=== PATIENT | male | born 1955 | race Caucasian/White ===

== ENCOUNTER 2018-01-25 20:41 | Emergency (ER) | payer BC, OTHER ==
[~2018-01-25] VITALS: Ht 181.6 cm; Wt 86.7 kg
[~2018-01-25 20:41] MED LIST: AMLO2.5T PO; BUPRTAB51 PO; CHOLTAB3 PO; DSY50 PO; MULT-506 PO; PANT1TAB4 PO
[2018-01-25 20:43] VITALS: TEMP 36.6; Ht 181.6 cm; Wt 86.7 kg
[2018-01-25] MEDS ORDERED: MULT-513 PO (21:13)
[2018-01-25] MEDS ORDERED: RIZA1TAB7 PO (21:13)
[2018-01-25] MEDS ORDERED: PANT40TA2 PO (21:13)
[2018-01-25] MEDS ORDERED: CHOL100027 PO (21:13)
[2018-01-25] MEDS ORDERED: TRAZ1TAB48 PO (21:13)
[2018-01-25] MEDS ORDERED: NRV/5 PO (21:13)
[2018-01-25] MEDS ORDERED: GLUCTAB7 PO (21:13)
[2018-01-25] MEDS ORDERED: WLLSR/200 PO (21:13)
[2018-01-25] MEDS ORDERED: ANT PO (21:13)
[2018-01-25] MEDS ORDERED: SODIUM CHLORIDE 0.9% 1000ML 1,000 ML IV STA (21:18)
[2018-01-25] MEDS ORDERED: ASPIRIN 81 MG CHEW PO STA (21:18)
[2018-01-25] MEDS ORDERED: FAMOTIDINE IV INJ 20 MG in DEXTROSE 5% 100ML 100 ML IV STA (21:18)
[2018-01-25] MEDS ORDERED: FAMOTIDINE 20MG/5ML IV PUSH IV ONE (21:32)
[2018-01-25 21:42] LABS: BASO % 0.2 %; BASO ABS # 0.02 K/uL (0-0.2); EOS % 0.5 %; EOS ABS # 0.06 K/uL (0-0.5); HEMATOCRIT 43.4 % (42-52); HEMOGLOBIN 15.2 g/dL (14.0-18.0); IG# 0.03 K/uL (0.00-0.02); LYMPH % 12.7 %; LYMPH ABS # 1.47 K/uL (1.2-3.4); MEAN CELL VOLUME 87.5 fL (80-100); MEAN CORPUSCULAR HEMOGLOBIN 30.6 pg (25-34); MEAN PLATELET VOLUME 11.2 fL (7.4-10.4); MONO % 6.5 %; MONO ABS # 0.75 K/uL (0.11-0.59); NEUT % 79.8 %; NEUT ABS # 9.24 K/uL (1.4-6.5); PLATELET COUNT 138 K/uL (130-400); RED CELL DISTRIBUTION WIDTH CV 13.2 % (11.5-14.5); RED CELL DISTRIBUTION WIDTH SD 42.4 fL (36.4-46.3); WHITE BLOOD COUNT 11.57 K/uL (4.8-10.8)
[2018-01-25 22:05] LABS: ALBUMIN 4.4 gm/dl (3.4-5.0); ALKALINE PHOSPHATASE 96 U/L (45-117); ALT/SGPT 28 U/L (12-78); AST/SGOT 29 U/L (15-37); BLOOD UREA NITROGEN 16 mg/dl (7-18); CALCIUM 8.7 mg/dl (8.5-10.1); CARBON DIOXIDE 27 mmol/L (21-32); CREATININE 1.01 mg/dl (0.60-1.40); GLUCOSE 105 mg/dl (70-99); LIPASE 228 U/L (73-393); POTASSIUM 3.7 mmol/L (3.5-5.1); SODIUM 138 mmol/L (136-145); TOTAL PROTEIN 7.8 gm/dl (6.4-8.2)
--- NOTE | 2018-01-25 22:50 | DIAGNOSTIC IMAGING REPORT ---
ABDOMEN 2VIEW W/PA CHEST RTN CLINICAL HISTORY: constipation, CP, nausea pain COMPARISON STUDY: 06/19/2015 FINDINGS: Lungs are clear. Diaphragms are smooth. Nonobstructive bowel pattern. Moderate fecal load within the ascending and transverse colon. Stable postoperative changes of the low lumbar spine consistent with laminectomy and fusion. IMPRESSION: 1. Negative chest. 2. Moderate increase in fecal material in ascending and transverse colon. 3. Otherwise negative study. The above report was generated using voice recognition software. It may contain grammatical, syntax or spelling errors. Electronically signed by: Camden Barrow M.D. 01/25/2018 10:48 PM Dictated Date/Time: 01/25/2018 10:48 PM
[2018-01-25] MEDS ORDERED: RANI150T3 PO (23:55)
[2018-01-26 00:01] VITALS: BP 132/67; PULSE 67; O2SAT 96
--- NOTE | 2018-01-26 00:34 | EMERGENCY ROOM VISIT NOTE ---
History First contact with patient: 20:54 Chief Complaint: GI ASSESSMENT Stated Complaint: CHEST PAIN Nursing Triage Summary: pt reports "I'm under a lot of stress recently, my spouse and i broke up over the weekend and i have a very stressful job, i'm a public relations account supervisor." pt c/o epigastric pain that began last night and continued with chest and back pain today. pt reports hx of bleeding ulcer approx 3 years ago that "almost required a transfusion." states "this sort of feels like the ulcer before but i got worried when my chest started to hurt. i think this is just anxiety, but still. " pt alert and oriented x4, breathing WNL, respirations regular and unlabored, lungs clear in all [place]. reports epigastric/chest pain. denies n/v/d/urinary symptoms. bowel sounds WNL, abd soft, nontender. pt ambulatory independently. History of Present Illness The patient is a 62 year old male who presents to the Emergency Room with complaints of epigastric abdominal pain. Patient states started at approximately 230 3:00 this afternoon after eating a cheeseburger for lunch. Patient states the pain began to radiate to the right shoulder. He is concerned because he has a history of a bleeding ulcer. Patient's had a very stressful week including leaving his , moving out of his house. Patient states he has a history of alcohol abuse but has not had any alcohol in approximately 25 years. He denies any history of heart disease. He denies any smoking history or strong family history of heart disease. He does admit to some nausea currently. Review of Systems See HPI for pertinent positives & negatives. A total of 10 systems reviewed and were otherwise negative. Past Medical/Surgical History Medical Problems: (1) GI bleed PUD (peptic ulcer disease) Family History Cancer Heart disease Lung disease Social History Smoking Status: Never Smoker Alcohol Use: other Drug Use: none Marital Status: Housing Status: lives with family Occupation Status: employed Current/Historical Medications Scheduled Amlodipine Besylate (Amlodipine Besylate), 5 MG PO DAILY Antacid (Antacid), 1 DOSE PO PRN Bupropion Hcl (Wellbutrin Sr), 200 MG PO BID Cholecalciferol (Vitamin D 1000 Unit), 1,000 INTER.UNIT PO DAILY Yzosiobnwmb-Phwujfbboxj-Xqo C- (Glucosamine Chondroitin), 1 TAB PO DAILY Multivitamins/Minerals (Mvi With Minerals), 1 TAB PO DAILY Pantoprazole (Pantoprazole Sodium), 40 MG PO DAILY Rizatriptan Benzoate (Rizatriptan Benzoate), 10 MG PO prn ud Trazodone Hcl (Desyrel), 50 MG PO HS Scheduled PRN Ranitidine Hcl (Zantac), 150 MG PO BID PRN for gastritis Physical Exam Vital Signs Date Time Temp Pulse Resp B/P (MAP) Pulse Ox O2 Delivery O2 Flow Rate FiO2 01/26/18 00:01 67 18 132/67 96 01/25/18 22:33 67 18 141/79 98 Room Air 01/25/18 20:43 36.6 86 20 148/87 95 Room Air Physical Exam Vital signs reviewed. General: Well-appearing 62-year-old male, in no significant distress. HEENT: No scleral icterus, PERRLA, neck supple. Atraumatic. Cardiovascular: Regular rate and rhythm, no extra sounds. Pulmonary: Clear to auscultation bilaterally, normal work of breathing. Abdomen: Soft, mild epigastric abdominal tenderness, nondistended, positive bowel sounds. Musculoskeletal: Atraumatic, no peripheral edema. Neurologic: Patient awake alert and oriented x 3 Skin: Warm, dry, no rash Medical Decision & Procedures ER Provider Diagnostic Interpretation: ABDOMEN 2VIEW W/PA CHEST RTN CLINICAL HISTORY: constipation, CP, nausea pain COMPARISON STUDY: 06/19/2015 FINDINGS: Lungs are clear. Diaphragms are smooth. Nonobstructive bowel pattern. Moderate fecal load within the ascending and transverse colon. Stable postoperative changes of the low lumbar spine consistent with laminectomy and fusion. IMPRESSION: 1. Negative chest. 2. Moderate increase in fecal material in ascending and transverse colon. 3. Otherwise negative study. The above report was generated using voice recognition software. It may contain grammatical, syntax or spelling errors. Electronically signed by: Camden Barrow M.D. 01/25/2018 10:48 PM Dictated Date/Time: 01/25/2018 10:48 PM Ultrasound of the right upper quadrant reveals borderline dilated pancreatic duct, 3 mm. Liver, right kidney, CBD are unremarkable. No gallbladder wall thickening or cholelithiasis. Gallbladder adenomyomatosis is present. Radiologist: Judson Parra MD Laboratory Results 01/25/18 21:05 Red Blood Count 4.96, Mean Corpuscular Volume 87.5, Mean Corpuscular Hemoglobin 30.6, Mean Corpuscular Hemoglobin Concent 35.0, Mean Platelet Volume 11.2, Neutrophils (%) (Auto) 79.8, Lymphocytes (%) (Auto) 12.7, Monocytes (%) (Auto) 6.5, Eosinophils (%) (Auto) 0.5, Basophils (%) (Auto) 0.2, Neutrophils # (Auto) 9.24, Lymphocytes # (Auto) 1.47, Monocytes # (Auto) 0.75, Eosinophils # (Auto) 0.06, Basophils # (Auto) 0.02 01/25/18 21:05 Test 01/25/18 21:05 White Blood Count 11.57 K/uL (4.8-10.8) Red Blood Count 4.96 M/uL (4.7-6.1) Hemoglobin 15.2 g/dL (14.0-18.0) Hematocrit 43.4 % (42-52) Mean Corpuscular Volume 87.5 fL (80-100) Mean Corpuscular Hemoglobin 30.6 pg (25-34) Mean Corpuscular Hemoglobin Concent 35.0 g/dl (32-36) Platelet Count 138 K/uL (130-400) Mean Platelet Volume 11.2 fL (7.4-10.4) Neutrophils (%) (Auto) 79.8 % Lymphocytes (%) (Auto) 12.7 % Monocytes (%) (Auto) 6.5 % Eosinophils (%) (Auto) 0.5 % Basophils (%) (Auto) 0.2 % Neutrophils # (Auto) 9.24 K/uL (1.4-6.5) Lymphocytes # (Auto) 1.47 K/uL (1.2-3.4) Monocytes # (Auto) 0.75 K/uL (0.11-0.59) Eosinophils # (Auto) 0.06 K/uL (0-0.5) Basophils # (Auto) 0.02 K/uL (0-0.2) RDW Standard Deviation 42.4 fL (36.4-46.3) RDW Coefficient of Variation 13.2 % (11.5-14.5) Immature Granulocyte % (Auto) 0.3 % Immature Granulocyte # (Auto) 0.03 K/uL (0.00-0.02) D-Dimer 280 ug/L FEU (0-500) Anion Gap 7.0 mmol/L (3-11) Est Creatinine Clear Calc Drug Dose 83.0 ml/min Estimated GFR () 92.6 Estimated GFR (Non- 79.9 BUN/Creatinine Ratio 15.7 (10-20) Calcium Level 8.7 mg/dl (8.5-10.1) Total Bilirubin 0.8 mg/dl (0.2-1) Direct Bilirubin 0.2 mg/dl (0-0.2) Aspartate Amino Transf (AST/SGOT) 29 U/L (15-37) Alanine Aminotransferase (ALT/SGPT) 28 U/L (12-78) Alkaline Phosphatase 96 U/L (45-117) Troponin I < 0.015 ng/ml (0-0.045) Total Protein 7.8 gm/dl (6.4-8.2) Albumin 4.4 gm/dl (3.4-5.0) Lipase 228 U/L (73-393) Medications Administered Medications (Trade) Dose Ordered Sig/Mary Route Start Time Stop Time Status Last Admin Dose Admin Aspirin (Aspirin Chew) 324 mg NOW STAT PO 01/25/18 21:18 01/25/18 21:24 DC 01/25/18 21:33 324 MG Sodium Chloride 1,000 ml @ 125 mls/hr Q8H STAT IV 01/25/18 21:18 01/26/18 05:17 01/25/18 21:35 125 MLS/HR Famotidine (Pepcid 20mg Iv Push) 20 mg STK-MED ONCE IV 01/25/18 21:32 01/25/18 21:33 DC 01/25/18 21:35 20 MG ECG Per My Interpretation Indication: chest pain Rate (beats per minute): 78 Rhythm: normal sinus Findings: no acute ischemic change, no ectopy Medical Decision Differential diagnosis: Acute coronary syndrome, cholelithiasis, cholecystitis, peptic ulcer, pulmonary embolus, aortic dissection, musculoskeletal pain, pneumonia, pleural effusion, pneumothorax This patient was evaluated and appeared to be in no significant distress. IV access was obtained and laboratory work was drawn. Patient was given aspirin 324 mg to chew. He was given Pepcid 20 mg IV. Ultrasound the right upper quadrant was performed and reveals no evidence of acute cholecystitis. Chest x- ray is clear. Abdominal 2 view reveals evidence of fecal retention. Laboratory work reveals a negative troponin. Patient's d-dimer is negative. He was informed of the findings. He will follow-up with his PCP for reevaluation and consideration of further cardiac testing. He was advised to continue his Protonix as prescribed and to use Zantac 150 mg p.o. twice daily as needed. He will avoid aggravating factors and return to the ED for worsening of symptoms or any medical concerns. Medication Reconcilliation Current Medication List: was personally reviewed by me Blood Pressure Screening Patient's blood pressure: Elevated blood pressure Blood pressure disposition: Elevated BP felt to be situational Impression Primary Impression: Epigastric pain Additional Impression: Constipation Departure Information Prescriptions Ranitidine Hcl (ZANTAC) 150 Mg Tab 150 MG PO BID Y for gastritis, #60 TAB Prov: Vidhi Fernandez M.D. 01/25/18 Forms HOME CARE DOCUMENTATION FORM, IMPORTANT VISIT INFORMATION Patient Instructions My [facility] Additional Instructions Diagnosis: Epigastric abdominal pain, constipation Continue Protonix daily as prescribed. Zantac 150 mg twice daily as needed for pain or gastritis. MiraLAX 1 capful 1-2 times daily as needed for a bowel movement. Avoid NSAIDs such as aspirin, Aleve and ibuprofen. Follow-up with your primary care physician and/or construction foreman for reevaluation. Return to the ED for worsening of symptoms or any medical concerns. Problem Qualifiers Additional Impression: Constipation Constipation type: slow transit constipation Qualified Codes: K59.01 - Slow transit constipation
--- NOTE | 2018-01-26 07:11 | DIAGNOSTIC IMAGING REPORT ---
ABDOMINAL ULTRASOUND, RIGHT UPPER QUADRANT HISTORY: epigastric pain. COMPARISON: None. FINDINGS: Pancreas: The pancreatic head and tail are obscured by overlying bowel gas. The remaining portions of the pancreas are within normal limits. Liver: The liver is echogenic consistent with fatty change. Gallbladder: No gallbladder wall thickening. No gallstones. Punctate echogenic foci within the gallbladder wall with ring down artifact. This favors adenomyomatosis. CBD: 5 mm. Right kidney: No hydronephrosis. IMPRESSION: 1. No gallbladder wall thickening. No gallstones. 2. Hepatic steatosis. 3. Gallbladder adenomyomatosis. Electronically signed by: Carlos Melchor M.D. 01/26/2018 7:09 AM Dictated Date/Time: 01/26/2018 7:08 AM
== END 2018-01-26 00:01 | disposition home or self-care (01) ==
LOC: C.EDB 20:42 → C.EDC 01-26 00:01
DX: R10.13 Epigastric pain (principal); K59.01 Slow transit constipation; Z87.11 Personal history of peptic ulcer disease

== ENCOUNTER → 2018-01-30 | Outpatient (CLI) | payer BC ==
[~2018-01-30] MED LIST changes: -AMLO2.5T PO; +ANT PO; -BUPRTAB51 PO; +CHOL100027 PO; -CHOLTAB3 PO; -DSY50 PO; +GLUCTAB7 PO; -MULT-506 PO; +MULT-513 PO; +NRV/5 PO; -PANT1TAB4 PO; +PANT40TA2 PO; +RANI150T3 PO; +RIZA1TAB7 PO; +TRAZ1TAB48 PO; +WLLSR/200 PO
[2018-01-30 12:58] LABS: BASO % 0.3 %; BASO ABS # 0.02 K/uL (0-0.2); EOS % 3.2 %; EOS ABS # 0.19 K/uL (0-0.5); HEMATOCRIT 41.3 % (42-52); HEMOGLOBIN 13.9 g/dL (14.0-18.0); LYMPH % 20.7 %; LYMPH ABS # 1.22 K/uL (1.2-3.4); MEAN CELL VOLUME 89.8 fL (80-100); MEAN CORPUSCULAR HEMOGLOBIN 30.2 pg (25-34); MEAN CORPUSCULAR HGB CONC 33.7 g/dl (32-36); MEAN PLATELET VOLUME 11.4 fL (7.4-10.4); MONO % 7.3 %; MONO ABS # 0.43 K/uL (0.11-0.59); NEUT % 68.5 %; NEUT ABS # 4.03 K/uL (1.4-6.5); PLATELET COUNT 162 K/uL (130-400); RED CELL DISTRIBUTION WIDTH CV 13.3 % (11.5-14.5); RED CELL DISTRIBUTION WIDTH SD 43.8 fL (36.4-46.3); WHITE BLOOD COUNT 5.89 K/uL (4.8-10.8)
== END | disposition home or self-care (01) ==
LOC: C.LABMFLN 08:08
PROVIDERS: ATTEND Family Medicine
DX: Z20.2 Contact with and (suspected) exposure to infections with a predominantly sexual mode of transmission (principal); D72.829 Elevated white blood cell count, unspecified; Z11.59 Encounter for screening for other viral diseases